=== PATIENT | female | born 1970 | race Caucasian/White ===

== ENCOUNTER → 2024-07-19 09:45 | Outpatient (REF) | payer SELFPAY ==
[2024-07-20 03:21] LABS: Hepatitis B Surface Antibody Indeterminate
[2024-07-21 11:58] LABS: Varicella Zoster IgG (VZV) Positive
== END ==
LOC: OHS 09:45
PROVIDERS: ATTENDING PHYSICIAN Emergency Medicine
DX: Z02.1 Encounter for pre-employment examination (principal)
CPT/HCPCS: 36415; 86706; 86787